=== PATIENT | male | born 1950 | race Caucasian/White ===

== ENCOUNTER → 2022-11-04 | Day surgery (SDC) | payer OTHER ==
--- NOTE | 2022-11-04 13:23 | RAD REPORT ---
EXAM DESCRIPTION: US - Guided FNA Non Breast - 11/04/2022 10:56 am CLINICAL HISTORY: M27.8, K11.9 COMPARISON: No comparisons FINDINGS: Preoperative diagnosis: Left parotid mass. Post operative diagnosis: Same. Conscious Sedation: None Fluoroscopy time: None Contrast used: None Estimated blood loss: Minimal Specimens:5 fine-needle aspiration biopsy/ cytology specimens. The left cheek/upper neck was prepped and draped in the usual sterile fashion. 1% lidocaine was infil trated into the subcutaneous tissues for local anesthesia. Real time ultrasound scanning of the left parotid region demonstrated a large hypoechoic mass measuring 3.3 x 2.9 x 2.9 centimeter. Under ultra sound guidance, using 4 25 gauge and a single 22 gauge needles, multiple fine-needle aspiration speci mens were obtained of this lesion and sent to pathology for evaluation, utilizing a combination of sl ides and RPMI solution. Patient tolerated the procedure with some intermittent experience of pain dur ing the sampling. IMPRESSION: Successful left parotid fine-needle aspiration biopsy/cytology.
== END ==
LOC: FNA 09:19
PROVIDERS: ATTEND Nurse Practitioner Family
PROC: 0CBJ3ZX Excision of Minor Salivary Gland, Percutaneous Approach, Diagnostic (ICD-10-PCS; principal; 2022-11-04)
DX: M27.8 Other specified diseases of jaws (principal); K11.9 Disease of salivary gland, unspecified
CPT/HCPCS: 88162